=== PATIENT | male | born 1945 | race Caucasian/White ===

== ENCOUNTER → 2023-08-02 15:18 | Outpatient (REF) | payer MEDICARE, SELFPAY | LOC: PAVMRI 15:18 | PROVIDERS: ATTENDING PHYSICIAN Physician Assistant; FAMILY PHYSICIAN Internal Medicine | DX: M54.16 Radiculopathy, lumbar region (principal) | CPT/HCPCS: 72148 ==

== ENCOUNTER 2024-07-14 06:17 | Day surgery (SDC) | payer MEDICARE, SELFPAY | END 2024-07-14 09:03 | disposition home or self-care (01) | LOC: GI 06:17 | PROVIDERS: ATTENDING PHYSICIAN Internal Medicine Gastroenterology | DX: Z12.11 Encounter for screening for malignant neoplasm of colon (principal); K51.30 Ulcerative (chronic) rectosigmoiditis without complications; K51.50 Left sided colitis without complications; K62.89 Other specified diseases of anus and rectum; K64.8 Other hemorrhoids | CPT/HCPCS: 45380; 88305 ==

== ENCOUNTER → 2025-01-16 07:12 | Outpatient (REF) | payer MEDICARE, SELFPAY | LOC: PAVMRI 07:12 | PROVIDERS: ATTENDING PHYSICIAN Neurological Surgery; FAMILY PHYSICIAN Internal Medicine | DX: M16.0 Bilateral primary osteoarthritis of hip (principal) | CPT/HCPCS: 72195 ==

== ENCOUNTER → 2025-03-26 18:53 | Outpatient (REF) | payer MEDICARE, SELFPAY | LOC: PAVMRI 18:53 | PROVIDERS: ATTENDING PHYSICIAN Neurological Surgery; FAMILY PHYSICIAN Internal Medicine | DX: M43.16 Spondylolisthesis, lumbar region (principal) | CPT/HCPCS: 72110; 72148 ==